=== PATIENT | male | born 1995 | race Caucasian/White ===

== ENCOUNTER 2022-09-28 20:28 | Outpatient (CLI) | payer OTHER | END 2022-09-28 20:29 | disposition home or self-care (01) | LOC: SC 20:28 | PROVIDERS: ATTEND Nurse Practitioner Family | DX: R06.83 Snoring (principal); G47.8 Other sleep disorders; R06.81 Apnea, not elsewhere classified; R51.9 Headache, unspecified; G47.10 Hypersomnia, unspecified | CPT/HCPCS: 95810 ==

== ENCOUNTER 2022-10-07 14:04 | Outpatient (CLI) | payer OTHER ==
--- NOTE | 2022-10-07 14:53 | Sleep Patient Instructions ---
Sleep Center Visit Summary - Patient Visit Information Reason for Visit: Sleep study followup - Patient Instructions Additional Instructions: Your sleep study today was negative for significant sleep disordered breathing. You were found to have episodes of snoring. There are different ways to control snoring including weight loss, oral devices made by a dentist or surgical options through ENT specialist. You should not use oral devices that do not fit properly because they can affect your bite. You should also check insurance coverage of oral devices for snoring because they may not be cover well. You may obtain a referral to an ENT specialist through your primary provider. Because of your concerns with insomnia, an appointment will be made with Dr. Bazan for further consultation. Please fill out and bring in a 2 week sleep diary to this appointment. Follow-up in sleep care for insomnia. - Clinic Information Contact: [facility] [address] [place] [address] [email or web address] T: [phone]
--- NOTE | 2022-10-07 14:59 | SLEEP CARE CONSULTATION ---
Information from patient questionnaire entered by Luz Elena Bhandari. I have reviewed and concur with the information entered by Luz Elena Bhandari. This document represents the service I personally performed and the decisions made by , Deysi Deleon ARNP. History of Present Illness Service Date and Time: 10/07/2022 1404 Initial [place] Sleepiness Scale score: 7 (09/08/22) Current [place] Sleepiness Scale score: 9 (10/07/22) Additional HPI information: SHARRI BLANK returns for follow up and results of the recently performed polysomnography. The patient was informed of the following findings: No significant sleep disordered breathing with an average AHI of 3.8 and tierney oxygen saturation of 90%. I explained the pathophysiology behind obstructive sleep apnea. Patient does not have sleep apnea and was advised how weight gain could increase the risk of developing sleep apnea in the future. Patient has light to loud snoring. Snoring can be reduced by weight loss. Weight loss is best achieved with diet consult. Patient instructed to contact PCP for referral. Snoring can also be treated with an oral appliance from a dentist. Advised to check insurance coverage. In addition, an ENT evaluation can be do to see if other treatment is indicated. Patient counseled not drink alcohol less than 4 hours before bedtime as it can increase snoring and apnea. Patient was cautioned about risks of drowsy driving until sleepiness symptoms resolve. Patient denies drowsy driving. Sleep Study - Results Type of Sleep Study: Polysomnography (COMPLETED ON 09/28/22) Prior sleep studies: No Polysomnography/Home Sleep Study results: IMPRESSION: The quality of the study is good. The patient had normal sleep efficiency. The sleep architecture was relatively normal as well considering the first night effect. Respiratory monitoring showed no significant sleep disordered breathing (AHI = 3.8) or hypoxia (tierney oxygen saturation of 90%). The patient slept almost exclusively in supine position (supine AHI = 3.8; non-supine = 0.00). Snore was light to loud in intensity. There was no significant periodic leg movement of sleep. Cardiac rhythm was normal sinus rhythm without significant arrhythmia. No abnormal behavior (parasomnia) observed during the night. Allergies and Home Medications Known drug allergies: No Drug allergies reviewed: Yes Home medication list reviewed: Yes (no changes) Allergy and home medication list: Allergies No Known Drug Allergies Allergy (Verified 10/06/22 16:35) Review of Systems Review of systems same as previous: Yes (no changes) Physical Exam Vital signs obtained and entered by: LUZ ELENA Vega MA Blood Pressure: 94/6 (LEFT [facility]) Cuff size: regular Heart Rate: 100 O2 Saturation: 97 Height: 5 ft 8 in Weight: 167 lb Body Mass Index: 25.4 BMI Classification: Overweight Impression and Plan 1. Snoring but no significant sleep disordered breathing. Patient advised that often weight loss will reduce snoring as well as apnea risk. An oral appliance can also be used for snoring. This would require a dental consultation. Patient cautioned not to use other online appliances as can cause bite issues. Patient is advised to check if insurance will cover. An ENT consult can also be helpful to determine if any other treatment is an option. 2. Insomnia, sleep-onset. His main concern is that he needs to use over the counter medication like Zquil to initiate sleep. If he does not take anything he will be awake for hours. He tried melatonin but this made him feel groggy for the day. He can generally stay asleep after getting to sleep. Insomnia is generally caused by an irregular sleep schedule, spending too much time in bed, napping, caffeine, electronics, lack of a relaxing bedtime ritual and clock watching. Other factors can include anxiety/depression, pain, medications, and obstructive sleep apnea. The [facility] How to Sleep Better pamphlet given and reviewed. A sleep diary will be completed for 2 weeks prior to his appointment to assist implementation of recommendations and for further evaluation of sleep concerns. * Followup with Dr. Bazan for insomnia * Maintain a healthy weight * Avoid alcohol consumption near bedtime * Return for follow up in 1-2 months. Counseling Topics: Weight control Visit Type: In Office Time Spent with Patient (minutes): 21 Provider Statement: I spent 100% of the Face to Face Visit with the patient with greater than 50% spent counseling the patient and coordination of care.
[2022-10-07 15:03] VITALS: BP 94/6; O2SAT 97
== END 2022-10-07 14:05 | disposition home or self-care (01) ==
LOC: SC 14:04
PROVIDERS: ATTEND Nurse Practitioner Family
DX: R06.83 Snoring (principal); G47.00 Insomnia, unspecified; E66.3 Overweight; Z68.25 Body mass index [BMI] 25.0-25.9, adult
CPT/HCPCS: 99212; 99213